=== PATIENT | male | born 2000 | race Caucasian/White ===

== ENCOUNTER 2025-01-12 09:35 | Outpatient (AMB) | payer BC, SELFPAY ==
--- NOTE | 2025-01-12 09:41 | MHC.PC.OV ---
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 Allergies cat dander Allergy (Verified 01/12/25 09:46) Itchy throat, watery eyes peanut Allergy (Verified 01/12/25 09:46) Throat closes and hives Seasonal Allergies Allergy (Verified 01/12/25 09:46) Runny nose, watery eyes shellfish derived Allergy (Verified 01/12/25 09:46) Throat closes, hives tree nut Allergy (Verified 01/12/25 09:46) Hives Medication List - Last Reconciled 01/12/25 by EDGARD Casanova bupropion HCl 75 mg PO DAILY Tobacco use date assessed: 01/12/25 Dental Screening Dental Screen Date: 01/12/25 Did you have a dental visit in the last 12 months?: Yes Did you have a dental problem in the last 6 months where you did not have access to dental care?: No Was dental information given to patient?: Patient has dentist HPI HPI Comments History of Present Illness Details This is a 24-year-old male with a past medical history of ADHD presenting to establish care, and he requests a physical exam. Patient has a history of ADHD and endorses mild depression treated with bupropion 75 mg daily. His psychiatrist is Dr. Winters. He was previously on Strattera. Patient is followed by [facility] for psoriasis. Patient wants to bring up a concern today about chest discomfort. Patient endorses a ?pulling/tugging discomfort? that occurs in the middle or left or right side of the chestt. This began 3 months ago. It happens 4 or 5 days a week. It is worse when he bends forward, and it is better when he is lying down or stands up straight. It also may occur when he does not been forward. It is not associated with exertion or exercise. He gets lightheaded sometimes when he leans forward. He frequently feels fatigued. He denies shortness of breath, wheezing, coughing, syncope, palpitations or leg swelling. Denies known family history of sudden cardiac or cardiovascular disease. He endorses a history of acid reflux over the past couple of years. He talked about it with his floor molder, and he takes antacid as needed, but he tries to avoid the triggers which are acidic foods and caffeine. He says this has been more mild over the past year since he is avoiding these foods. He denies dysphagia, weight loss and abdominal pain. Denies history of trauma but notes that he works a physical job at [employer] and does a lot of lifting. He has a history of asthma which is mild or as an adult, and he has an inhaler to use as needed. No tobacco use. Drinks alcohol minimally. Patient received Tdap vaccine in April of 2023 at his floor molder's office. Declines screening for STIs. ROS: Constitutional: No unexplained weight loss, fever, chills or night sweats. Eyes: No vision changes, blurry vision, double vision, eye pain, eye redness, eye discharge. ENT: No hearing loss, sneezing, congestion, runny nose or sore throat. Respiratory: No shortness of breath, cough or sputum production. No wheezing or hemoptysis. Cardiovascular: See HPI Gastrointestinal: No anorexia, nausea, vomiting or diarrhea. No abdominal pain or blood in stool. Genitourinary: No dysuria, hematuria, urinary frequency. No testicular pain, lumps, urethral discharge. Neurologic: No headache,syncope, unilateral weakness, ataxia, numbness or tingling in the extremities. Musculoskeletal: No joint swelling or joint pain. He has had some discomfort in his upper back muscles which he related to lifting heavy loads at work. Hematologic/Lymphatics: No bleeding or bruising. No painful lymph nodes. Skin: No rash Endocrine: No cold or heat intolerance. No polyuria or polydipsia. Psychiatric: See HPI. No SI or HI. Physical exam: Constitutional: Alert, in no distress. Head: Normocephalic. Eyes: Pupils are equal, round and reactive to light. Extraocular muscles intact. Ear, Nose and Throat: Canals clear. TMs normal. Normal nasal mucosa. No nasal discharge. No oral lesions. Neck: Supple, Full range of motion. No lymphadenopathy. No palpable thyroid masses. Respiratory: Clear to auscultation. Cardiovascular: S1 S2 regular. No murmurs. No carotid bruits. Gastrointestinal: Abdomen soft, non-tender, non-distended. Normal bowel sounds. No palpable masses. Genitourinary: apartment community assistant manager Mitesh chaperoned exam. No palpable hernias, scrotal masses, tenderness or urethral discharge. Neurologic: No focal neurological deficits. Symmetric patellar reflexes. Moves all extremities spontaneously. Sensation intact bilaterally. Skin: No rashes or lesions. Musculoskeletal: No gross deformities. Normal range of motion. Extremities: Warm and well perfused. No clubbing, cyanosis or edema. 3+ peripheral pulses bilaterally. Psychiatric: Normal mood and affect [facility] Medical History (Updated 01/12/25 @ 10:36 by EDGARD Casanova) Fatigue ADHD Routine physical examination Screening for cardiovascular condition Chest discomfort Family History (Updated 01/12/25 @ 09:54 by Brenda Gomez MA) Maternal Grandmother FHx: mental illness Father Asthma Mother Asthma Brother Asthma Social History (Updated 01/12/25 @ 09:50 by Brenda Gomez MA) Housing: House Alcohol intake: current Comment: Minimally Patient Tobacco Use Status: Never used Tobacco e-Cigarette/Vaping Use: Never Used Second Hand Smoke Exposure: No service: No Current occupational status: employed Current occupation: [employer] Current occupational exposures/hazards: No Cognitive needs: No Hearing needs: No Vision needs: Yes Questionnaire PHQ-9 Over the last 2 weeks, how often have you been bothered by any of the following problems? 1. Little interest or pleasure in doing things: more than half the days 2. Feeling down, depressed, or hopeless: more than half the days 3. Trouble falling or staying asleep, or sleeping too much: not at all 4. Feeling tired or having little energy: several days 5. Poor appetite or overeating: several days 6. Feeling bad about yourself - or that you are a failure or have let yourself or your family down: not at all 7. Trouble concentrating on things, such as reading the newspaper or watching television: several days 8. Moving or speaking so slowly that other people could have noticed. Or the opposite - being so fidgety or restless that you have been moving around a lot more than usual: not at all 9. Thoughts that you would be better off or of hurting yourself in some way: not at all Total score: 7 Depression Screening Interpretation: Positive Depression Screening Follow-up: In treatment Depression Screening Done: Yes 33011 - PHQ-9 Billing: Patient declined-do not bill Source: Developed by Drs. Siva Vargas, Corinna Lemon, Al Cruz and colleagues, with an educational jessica from [email or web address]. Thrive Questionnaire Date Thrive assessed: 01/12/25 I am a: Patient What is your living situation today?: I have a steady place to live Within the past 12 months, did the food you bought not last and you didn't have the money to get more?: I choose not to answer this question Within the past 12 months, did you worry whether your food would run out before you got money to buy more?: Often true Do you have trouble paying for medicines?: I choose not to answer this question Do you have trouble getting transportation to medical appointments?: I choose not to answer this question Do you have trouble paying your heating and electricity bill?: I choose not to answer this question Do you have trouble taking care of your child, family member or friend?: I choose not to answer this question Do you have trouble with day-to-day activities such as bathing, preparing meals, shopping, managing finances, etc.?: I choose not to answer this question Are you currently unemployed and looking for a job?: I choose not to answer this question Are you interested in more education?: Yes Please select the resources that you would like help with: None Currently or been in a relationship where the following occur: I choose not to answer THRIVE Score: 1 AUDIT C Alcohol Use Questionnaire (AUDIT-C) 1. How often do you have a drink containing alcohol?: 2-4 times a month 2. How many drinks containing alcohol do you have on a typical day when you are drinking?: 1 or 2 3. How often do you have six or more drinks on one occasion?: Less than monthly Total Score: 3 Score Reviewed/Action Taken: No ITZEL-7 AMB Questionnaire ITZEL-7 Date ITZEL - 7 assessed: 01/12/25 Feeling nervous, anxious, or on edge: 0 = Not at all Not being able to stop or control worryin = Not at all Worrying too much about different things: 0 = Not at all Trouble relaxin = Not at all Being so restless that it is hard to sit still: 0 = Not at all Becoming easily annoyed or irritable: 0 = Not at all Feeling afraid as if something awful might happen: 0 = Not at all Total ITZEL-7 score (0-4 normal; 5-9 mild; 10-14 moderate; 15-21 severe): 0 Source: Developed by Drs. Siva Vargas, Corinna Lemon, Al Cruz and colleagues, with an educational jessica from [employer]. ITZEL-7 Assessment Billing ITZEL-7 Assessment Tool: ITZEL-7 Assessment 73375 ACT Questionnaire In the past 4 weeks, how much of the time did your asthma keep you from getting as much done at work, school or at home?: None of the time Score: 5 Physical exam (Primary Care) Vital Signs: Last Vital Signs Temp 98.1 F 01/12/25 09:51 Pulse 85 01/12/25 09:51 BP 100/60 01/12/25 09:51 Pulse Ox 97 01/12/25 09:51 Oxygen Delivery Method Room Air 01/12/25 09:51 BMI result Body Mass Index 30.7 Tobacco/Smoking Status: Tobacco use Status Tobacco use date assessed 01/12/25 01/12/25 09:54 Patient Tobacco Use Status Never used Tobacco 01/12/25 09:54 e-Cigarette/Vaping Use Never Used 01/12/25 09:54 PHQ-9: PHQ-9 Score PHQ-9: Total score 7 01/12/25 09:54 Depression Screening Interpretation: Positive Depression Screening Follow-up: In treatment Thrive Assessment: Date of Thrive Assessment Date Thrive assessed 01/12/25 01/12/25 09:42 Currently or been in a relationship where the following occur: I choose not to answer Office Procedures EKG Details: EKG shows sinus bradycardia with a ventricular rate of 59 beats per minute. No ischemic changes or evidence of arrhythmia. Reviewed by Dr. Mars. [id number], Complete Coding Level of Care Code New Pt Level 3 (43345) New Pt Prev Care 18-39yr(72996 Diagnoses Routine physical examination Z00.00 Chest discomfort R07.89 Screening for cardiovascular condition Z13.6 Fatigue R53.83 CPT Codes EKG - CPT: 12145-Infqxoiyhgaxddxyu, Complete ([id number]) Additional Codes ITZEL-7 Assessment Billing - ITZEL-7 Assessment Tool: ITZEL-7 Assessment 95459 ([id number]) Assessment & Plan Assessment & Plan (1) Routine physical examination: Code(s): Z00.00 - Encounter for general adult medical examination without abnormal findings Category: Medical Plan: Patient is seen today for a routine physical. As part of this visit we reviewed the following issues, which are considered and essential part of preventative health in this age group: - Testicular cancer screening, which includes self exam teaching - Blood pressure screening - Cholesterol screening - Nutritional and exercise counseling - Counseling of injury prevention including fire prevention, smoke alarms and seat belt usage - Screening for depression - Recommendations about immunizations - Recommendation of an eye exam - Screening for substance abuse (2) Chest discomfort: Code(s): R07.89 - Other chest pain Category: Medical Plan: EKG shows no ischemia or evidence of arrhythmia. It does not occur with exertion and is not associated with shortness of breath. He does not have a family history of cardiovascular disease. Cardiac etiology less likely. Differential includes GERD, hiatal hernia, gallstones, musculoskeletal etiology. Patient will have a chest x-ray completed. He will have labs done today. He will try omeprazole 20 mg every morning for the next 14 days and avoid spicy and acidic foods to see if this improves or alleviates symptoms entirely. He will follow up with me in 3 weeks for re-evaluation. Warning signs warranting ER evaluation reviewed with the patient. (3) Screening for cardiovascular condition: Code(s): Z13.6 - Encounter for screening for cardiovascular disorders Category: Medical (4) Fatigue: Code(s): R53.83 - Other fatigue Category: Medical Plan: Checking fatigue labs to start evaluation. Plan Follow up in 3 weeks. Orders: Orders TSH reflex Free T4 Today R07.89 - Other chest pain, Z00.00 - Encounter for general adult medical examination without abnormal findings, Z13.6 - Encounter for screening for cardiovascular disorders Complete Blood Count Auto Diff Today R07.89 - Other chest pain, Z00.00 - Encounter for general adult medical examination without abnormal findings, Z13.6 - Encounter for screening for cardiovascular disorders Lipase Today R07.89 - Other chest pain, Z00.00 - Encounter for general adult medical examination without abnormal findings, Z13.6 - Encounter for screening for cardiovascular disorders Lipid Panel Today E78.5 - Hyperlipidemia, unspecified, R07.89 - Other chest pain, Z00.00 - Encounter for general adult medical examination without abnormal findings, Z13.6 - Encounter for screening for cardiovascular disorders Vitamin B12 Today R53.83 - Other fatigue, Z91.89 - Other specified personal risk factors, not elsewhere classified AMB EKG-In Office Today R07.89 - Other chest pain XR chest 2V Today R07.89 - Other chest pain Comprehensive Met. Panel Today R07.89 - Other chest pain, Z00.00 - Encounter for general adult medical examination without abnormal findings, Z13.6 - Encounter for screening for cardiovascular disorders Lyme IgG/IgM w/reflex to WB Today R53.83 - Other fatigue Vitamin D 25-OH (D2 and D3) Today M85.80 - Other specified disorders of bone density and structure, unspecified site, R53.83 - Other fatigue Medications: New omeprazole administer 30 to 60 minutes before a meal; best if taken before breakfast 20 mg PO DAILY 30 caps 0RF
[2025-01-12 09:51] VITALS: BP 100/60; PULSE 85; TEMP 36.7; O2SAT 97; BMI 30.7
--- OUTSIDE RECORDS SUMMARY | 2025-01-12 10:42 | XMS_ITS | Data Portability ---
Author Organization EDGARD Villegas s, [facility] Address [address] [place] [address] Care Team Providers Care Enrollment Services Dean Name Role Phone [facility] Primary Care Provider Assessment No assessment recorded. Plan of Treatment Reminders Order Date Submit Date Provider Last Modified By Organization Details Last Modified Time Details Appointments None recorded. Lab rapid strep group A, throat 2023 [email or web address] [id number], [address] [place], [address], 12:43:51 streptococc us group A, culture, throat 2023 [place], [address] [place] [address], [address], 12:05:57 Referral None recorded. Procedures None recorded. Surgeries None recorded. Imaging None recorded. Medication Orders prednisone 50 mg tablet 2023 [id number], [address] [facility], [place], [address], 12:48:45 Patient TargetsNo targets recorded. Patient Instructions Encounter Date Encounter Id Patient Instructions Last Modified By Organization Details Last Modified Time 07/04/2024 [id number] Based on your Presentation, Exam, and Lab Testing you are being diagnosed with Pharyngitis. Your Rapid Strep Test was Negative. Most likely your sore throat is being caused by a virus, post nasal drip, or silent acid reflux. I am going to send a Throat Culture to the lab for you to make sure you don't have a different form of strep in your throat. This will take about 72 hours for that result to return. We will contact you if it positive - if for some reason you don't get a copy of your results or hear from us - please contact our office. The following are my other recommendations to help with symptoms and is important for this diagnosis: 1. Do not share any food or drinks - strep is passed through direct saliva exchange (NOT IN THE AIR) 2. Take Ibuprofen or Tylenol if you do not have any allergies to these medications. If you take a blood thinner you should not take NSAIDS like Ibuprofen. These medication will help with the inflammation in your respiratory tract which should help the cough. (I would alternate between Tylenol 650 mg and your Ibuprofen 600 mg every 4 hours) 3. Do not take any Cold Medications that have a Decongestant in it - this will dry out your throat and make the sore throat worse. 4. Drinking Hot Tea with honey can help coat and soothe your throat. 5. You would be considered contagious for the next 24-48 hours, or until fever resolves. I would be seen again if you develop any of the following symptoms. 1. Fever > 101.0 2. Stiff neck - where you can't turn your neck 3. Trouble swallowing your saliva - drooling 4. Swelling of a lymph node in your throat that is painful to touch 5. Difficulty breathing 6. Severe Headache Thank you for using [facility] today, please feel free to contact our office if you have any questions or concerns. [email or web address] Not available 07/04/2024 12:48:34 Reason for Referral None Reported. Results Created Date Observation Date Name Description Value Unit Range Abnormal Flag Note LastModifiedBy Organization Detail LastModifiedTime 07/04/2007/07/2024 BETA STREP GP A CULTU RE beta strep gp A culture NEGATI VE Refer ence Range : Negat jordan Not Available [facility]) [address] [facility], [place], [address], 07/07/2024 12:05:57 07/04/2007/04/2024 rapid strep group A, throa t Unknown Analyte negati ve Not Available [facility] [address] [place], [address], 07/04/2024 12:23:21 07/04/20 24 07/04/2024 rapid strep group A, throa t Unknown Analyte yes Not Available [address] [place], [address], 07/04/2024 12:23:21 Result Notes None recorded. Problems Name Problem SNOMED Code Status Onset Date Resolution Date Notes Provider Name and Address Organization Details Recorded Time Attention deficit hyperactivity disorder 753773951 Active 2023 Fabian cerna PA [facility] 12:19:47 Asthma 021661722 Active 2023 Fabian cerna PA [facility] 12:19:52 Problem Notes None recorded. Medical Equipment None Reported. Allergies No known drug allergies Medications Name Sig Start Date Stop Date Status Note LastModified by Organization Details LastModified Time prednisone 50 mg tablet Take 1 tablet every day by oral route for 5 days. 2023 active Not Available Not Available Not Avai lable atomoxetine 40 mg capsule TAKE 1 CAPSULE BY MOUTH EVERY DAY IN THE MORNING active Not Available Not Available No t Available albuterol sulf 90 mcg/actuatio n breath activated powder inhaler,sens or Inhale 2 puffs every 4 hours by inhalation route as needed. active Not Available Not Available No t Available Vitals Date Recorded Body height Body mass index (BMI) Body weight Body temperature Pain severity - 0-10 verbal numeric rating [Score] - Reported Oxygen saturation Oxygen saturation in Arterial blood by Pulse oximetry Heart rate Respiratory rate Systolic blood pressure Diastolic blood pressure Provider Name and Address Organization Details Last Updated DateTime 4 180.34 cm 30 kg/m2 93864.3 6 g 99 [degF] 4 98 % 98 % 97 /min 12 /min 108 mm[Hg] 68 mm[Hg] Fabian RENE - [facility] 12:25:05 Social History Question Answer Notes LastModified by Organizat ion Details LastModified Time Tobacco Smoking Status Never Smoker EDGARD Lerner [facility] 07/04/2024 12:20:55 What Is Your Level Of Alcohol Consumption? Occasional Information not available 07/04/2024 How Many Times Per Week Do You Consume Alcohol? 1-2 Times Per Week Information not available 07/04/2024 How Many Years Have You Consumed Alcohol? 2 Information not available 07/04/2024 Are You Currently Employed? Yes Information not available 07/04/2024 How Many Alcoholic Drinks Do You Consume Per Day On Average? 0 Information not available 07/04/2024 Have You Had A Flu Shot This Season? No Information not available 07/04/2024 If No, Would You Like A Flu Shot Today? No Information not available 07/04/2024 What Is Your Water Source? Well Information not available 07/04/2024 What Is Your Heat Source? Electric Information not available 07/04/2024 What Is Your Relationship Status? Single Information not available 07/04/2024 Are You Passively Exposed To Smoke? No Information no t available 07/04/2024 Do You Use Any Illicit Or Recreational Drugs? No Information not available 07/04/2024 Have You Recently Traveled Abroad? No Information not available 07/04/2024 Do You Or Have You Ever Used Any Other Forms Of Tobacco Or Nicotine? No Information not available 07/04/2024 Sex: Unknown Functional Status None recorded. Mental Status None recorded. Family History Relationship Description Onset Age of this Age Resolved Age Notes LastModified by Organization Details LastModified Time Father No current problems or disability Not available 07/04 12:20:15 Mother No current problems or disability Not available 07/04 12:20:15 Medical History No medical history recorded. Past Encounters Encounter ID Performer Location Encounter Start Date Encounter Closed Date Diagnosis/Indication Diagnosis SNOMED-CT Code Diagnosis ICD10 Code Diagnosis Note [id number] EDGARD HAYWARD [id number] [address] 07/04/2024 11:06:27 07/04/2024 12:56:16 Acute pharyngitis 056801960 J02.9 Cough 13557314 R05.9 Health Concerns Section Related Observation LastModified by Organization Detai ls LastModified Time None Recorded Concern Status LastModified by Organization Details LastModified Time None Recorded Advance Directives Directive None Recorded Payers Encounter Date Sequence Insurance Name Policy Number Policy Seth Covered Member ID Seth Member ID Guarantor Name 07/04/2024 1 [employer]: [employer] ([place]O) [id number] Biju A Mayra [id number] Amilcar Nunez Notes Date Note Type Note Provider Name and Address Organization Details Recorded Time 07/04/2024 text/html Sore throatRepor marcia [email or web address] y.o male pt presents with sore throat with phlegm x 3-4 days. PT denies fever, cough, nasal congestion or other sx's. EDGARD HAYWARD [address] [place], [address], [place] - [facility] 07/04/2024 12:53:25
== END 2025-01-12 10:39 | disposition home or self-care (01) ==
LOC: HO.HMCFM 09:36
PROVIDERS: PCP Physician Assistant Medical; Visit Provider Physician Assistant Medical
DX: Z00.00 Encounter for general adult medical examination without abnormal findings (principal); R07.89 Other chest pain; Z13.6 Encounter for screening for cardiovascular disorders; R53.83 Other fatigue

== ENCOUNTER → 2025-01-12 09:35 | Outpatient (BNVA) | payer BC, SELFPAY | PROVIDERS: PCP Physician Assistant Medical; Visit Provider Physician Assistant Medical | DX: Z00.00 Encounter for general adult medical examination without abnormal findings (principal); R07.89 Other chest pain; R53.83 Other fatigue | CPT/HCPCS: 93005; 96127 ==

== ENCOUNTER 2025-01-29 11:56 | Outpatient (REF) | payer BC, SELFPAY ==
[2025-01-29 14:20] LABS: MANUAL DIFF FLAG NO
[2025-01-29 14:29] LABS: Basophils Absolute Auto 0.1 X10*3/uL (0.0-0.2); Basophils Percent Auto 1.1 % (0-2); Eosinophils Absolute Auto 0.1 X10*3/uL (0.0-0.4); Eosinophils Percent Auto 2.3 % (0-4); Hematocrit 44.9 % (42.0-52.0); Hemoglobin 15.3 g/dl (14.0-18.0); Imm Gran Abs Auto 0.01 X10*3/uL (0.00-0.03); Imm Gran Pct Auto 0.2 % (0.0-0.4); Lymphocytes Absolute Auto 1.5 X10*3/uL (1.2-4.9); Lymphocytes Percent Auto 28.4 % (20-40); Mean Corpuscular HGB Conc 34.1 g/dl (31.0-36.0); Mean Corpuscular Hemoglobin 30.5 pg (27.0-33.0); Mean Corpuscular Volume 89.6 fL (80.0-98.0); Mean Platelet Volume 11.7 fL (9.4-12.4); Monocytes Absolute Auto 0.3 X10*3/uL (0.1-1.2); Monocytes Percent Auto 5.5 % (2-11); Neutrophils Absolute Auto 3.3 x10*3/uL (2.0-8.3); Neutrophils Percent Auto 62.5 % (45-73); Platelet Count 206 X10*3/uL (160-400); Red Blood Count 5.01 X10*6/uL (4.60-5.80); Red Cell Distribution Width 12.6 % (11.0-16.0); White Blood Count 5.3 X10*3/uL (4.8-10.8)
[2025-01-29 15:02] LABS: Alanine Aminotransferase 44 U/L (0-40); Albumin Level 4.2 g/dL (3.5-5.0); Anion Gap 10 (12-20); Aspartate Amino Transferase 40 U/L (5-37); Bilirubin Total 0.9 mg/dL (0.0-1.0); Blood Urea Nitrogen 15 mg/dL (9-16); Carbon Dioxide 30 mmol/L (22-29); Chloride 106 mmol/L (96-108); Cholesterol 163 mg/dL (<200); Estimated Glomerular Filt Rate > 60; Glucose Random 85 mg/dL (60-115); HDL Cholesterol 42 mg/dL (>40); LDL Cholesterol Calculated 104 mg/dL (<100); Lipase 22 U/L (8-78); Potassium 4.4 mmol/L (3.3-5.1); Sodium 142 mmol/L (135-145); TSH reflex Free T4 0.93 uIU/mL (0.32-4.0); Total Protein 7.1 g/dL (6.5-8.0); Triglycerides 87 mg/dL (<150)
[2025-01-29 15:54] LABS: Alkaline Phosphatase 46 U/L (39-117)
[2025-01-29 18:34] LABS: Vitamin B12 531 pg/mL (200-900)
[2025-01-30 05:58] LABS: Lyme Abs Screen <0.90 index
[2025-02-02 11:54] LABS: Vitamin D 25-OH, D2 <4 ng/mL; Vitamin D 25-OH, D3 25 ng/mL; Vitamin D 25-OH, Total 25 ng/mL (30-100)
== END 2025-01-29 11:57 | disposition home or self-care (01) ==
LOC: HO.WFDLDS 11:56
PROVIDERS: Visit Provider Physician Assistant Medical
DX: Z00.00 Encounter for general adult medical examination without abnormal findings (principal); Z13.6 Encounter for screening for cardiovascular disorders; R07.89 Other chest pain; E78.5 Hyperlipidemia, unspecified; Z91.89 Other specified personal risk factors, not elsewhere classified; R53.83 Other fatigue; M85.80 Other specified disorders of bone density and structure, unspecified site
CPT/HCPCS: 36415; 80053; 80061; 82306; 82607; 83690; 84443; 85025; 86617; 86618